=== PATIENT | male | born 1955 | race Caucasian/White ===

== ENCOUNTER 2021-09-11 14:09 | Emergency (ER) | payer OTHER ==
[~2021-09-11] VITALS: Ht 180.3 cm; Wt 79.4 kg
[~2021-09-11 14:09] MED LIST: ASPIRIN EC81 MG PO; AUGMENTIN 500-1 EACH PO; COREG12.5 MG PO; FUROSEMIDE20 MG PO
[2021-09-11] MEDS ORDERED: SODIUM CHLORIDE 0.9% 1000ML 1,000 ML IV STA (14:12)
[2021-09-11] MEDS ORDERED: ONDANSETRON HCL INJ 2MG/ML 2ML 2 MG/ML VIAL IV PRN (14:15)
[2021-09-11] MEDS ORDERED: DICYCLOMINE HCL 20 MG/2 ML VIAL IM ONE (14:45)
[2021-09-11 15:56] LABS: BASOPHILS % 0.2 % (0.0-1.0); EOSINOPHILS # (AUTO) 0.1 (0.0-0.4); EOSINOPHILS % 0.9 % (0.0-6.0); HEMATOCRIT 38.4 % (38.2-49.6); HEMOGLOBIN 12.6 g/dL (14.0-18.0); LYMPHOCYTES % 10.1 % (18.0-39.1); MEAN CORPUSCULAR HEMOGLOBIN 29.4 pg (28-32); MEAN CORPUSCULAR HGB CONC 32.8 g/dL (31-35); MEAN CORPUSCULAR VOLUME 89.5 fL (81-99); MONOCYTES # (AUTO) 0.5 (0.2-0.8); MONOCYTES % 4.7 % (4.4-11.3); NEUTROPHILS # (AUTO) 8.3 (2.1-6.9); NEUTROPHILS % 83.6 % (38.7-80.0); PLATELET COUNT 207 x10e3/uL (140-360); RED BLOOD COUNT 4.29 x10e6/uL (4.3-5.7); RED CELL DISTRIBUTION WIDTH 12.7 % (11.7-14.4)
[2021-09-11 16:03] LABS: CLARITY,URINE HAZY (CLEAR); COLOR,URINE YELLOW (YELLOW)
[2021-09-11 16:04] LABS: KETONES,URINE NEGATIVE (NEGATIVE); LEUKOCYTE ESTERASE ,URINE MODERATE (NEGATIVE); NITRITE,URINE NEGATIVE (NEGATIVE); PROTEIN,URINE DIPSTICK TRACE (NEGATIVE); URINE UROBILINOGEN 0.2 mg/dL (0.2 - 1)
[2021-09-11 16:05] LABS: BACTERIA,URINE FEW /HPF; EPITHELIAL CELLS,URINE FEW /LPF; WBC,URINE (MAN) >50 /HPF (0-5)
[2021-09-11 16:17] LABS: ALBUMIN 4.1 g/dL (3.5-5.0); ALBUMIN/GLOBULIN RATIO 1.1 (0.8-2.0); ANION GAP 14.6 mmol/L (8-16); CALCIUM 9.1 mg/dL (8.4-10.2); CREATININE, SERUM 1.39 mg/dL (0.72-1.25); POTASSIUM 3.6 mmol/L (3.5-5.1)
[2021-09-11] MEDS ORDERED: IOPAMIDOL 370 MG/ML 100 ML INFUS..BTL INJ ONE (17:15)
[2021-09-11] MEDS ORDERED: CEPHALEXIN500 MG PO (17:28)
[2021-09-11] MEDS ORDERED: PANTOPRAZOLE SO40 MG PO (17:55)
== END 2021-09-11 18:30 | disposition home or self-care (01) ==
LOC: ER 14:12
DX: R10.30 Lower abdominal pain, unspecified (principal); R11.2 Nausea with vomiting, unspecified; K29.70 Gastritis, unspecified, without bleeding; N39.0 Urinary tract infection, site not specified; I10 Essential (primary) hypertension; I50.9 Heart failure, unspecified; K57.90 Diverticulosis of intestine, part unspecified, without perforation or abscess without bleeding; I25.10 Atherosclerotic heart disease of native coronary artery without angina pectoris; K21.9 Gastro-esophageal reflux disease without esophagitis; K44.9 Diaphragmatic hernia without obstruction or gangrene
CPT/HCPCS: 36415; 71045; 74177; 80053; 81001; 83690; 83880; 84484; 85025; 93005; 99284; J0500; J2405; Q9967

== ENCOUNTER 2022-07-14 12:27 | Inpatient (IN) | payer OTHER ==
[~2022-07-14] VITALS: Ht 180.3 cm; Wt 80.4 kg
[~2022-07-14 12:27] MED LIST changes: +CEPHALEXIN500 MG PO; +PANTOPRAZOLE SO40 MG PO
[2022-07-14 13:23] LABS: BASOPHILS % 0.1 % (0.0-1.0); HEMATOCRIT 36.6 % (38.2-49.6); HEMOGLOBIN 12.4 g/dL (14.0-18.0); LYMPHOCYTES # (AUTO) 0.5 (1.0-3.2); LYMPHOCYTES % 2.8 % (18.0-39.1); MEAN CORPUSCULAR HGB CONC 33.9 g/dL (31-35); MEAN CORPUSCULAR VOLUME 88.4 fL (81-99); MONOCYTES # (AUTO) 1.8 (0.2-0.8); MONOCYTES % 10.1 % (4.4-11.3); NEUTROPHILS # (AUTO) 15.1 (2.1-6.9); NEUTROPHILS % 85.5 % (38.7-80.0); PLATELET COUNT 196 x10e3/uL (140-360); RED BLOOD COUNT 4.14 x10e6/uL (4.3-5.7)
[2022-07-14 13:42] LABS: ALBUMIN 3.5 g/dL (3.5-5.0); ANION GAP 15.8 mmol/L (8-16); CALCIUM 9.1 mg/dL (8.4-10.2); CREATININE, SERUM 2.43 mg/dL (0.72-1.25); POTASSIUM 3.8 mmol/L (3.5-5.1)
[2022-07-14] MEDS ORDERED: ACETAMINOPHEN 325 MG TAB PO ONE (14:00)
[2022-07-14] MEDS ORDERED: SODIUM CHLORIDE 0.9% 1000ML 500 ML IV ONE (14:00)
[2022-07-14 14:42] LABS: CLARITY,URINE TURBID (CLEAR); COLOR,URINE YELLOW (YELLOW); KETONES,URINE 2+ (NEGATIVE); LEUKOCYTE ESTERASE ,URINE LARGE (NEGATIVE); NITRITE,URINE NEGATIVE (NEGATIVE); PROTEIN,URINE DIPSTICK >=300 (NEGATIVE); URINE UROBILINOGEN 0.2 mg/dL (0.2 - 1)
[2022-07-14 14:45] LABS: BACTERIA,URINE MANY /HPF; EPITHELIAL CELLS,URINE FEW /LPF; RBC,URINE >50 /HPF (0-5); WBC,URINE (MAN) >50 /HPF (0-5)
[2022-07-14] MEDS ORDERED: Morphine 4mg INJECTION 4 MG/ML INJ IV PRN (16:00)
[2022-07-14] MEDS ORDERED: ONDANSETRON HCL INJ 2MG/ML 2ML 2 MG/ML VIAL IV PRN (16:00)
[2022-07-14 16:25] LABS: INR 1.21; PROTHROMBIN TIME 15.8 seconds (11.9-14.5)
[2022-07-14] MEDS ORDERED: IOPAMIDOL 370 MG/ML 100 ML INFUS..BTL INJ ONE (16:25)
[2022-07-14] MEDS ORDERED: SODIUM CHLORIDE 0.9% 250ML 250 ML ONE (16:25)
[2022-07-14] MEDS ORDERED: LIDOCAINE HCL 1% LOCAL INJ 20 ML VIAL ONE (16:25)
[2022-07-14] MEDS ORDERED: CEFTRIAXONE 1 GM VIAL ONE (16:29)
[2022-07-14] MEDS ORDERED: FENTANYL CITRATE/PF 100MCG/2 ML INJ ONE (16:29)
[2022-07-14] MEDS: SODIUM CHLORIDE 0.9% 1000ML 1,000 ML IV SCH (17:21)
[2022-07-14] MEDS ORDERED: MEROPENEM 1 GM in SODIUM CHLORIDE 0.9% 100 ML IV ONE (18:00)
[2022-07-14] MEDS ORDERED: ACETAMINOPHEN 325 MG TAB PO PRN (18:00)
[2022-07-14] MEDS ORDERED: ACETAMINOPHEN 325 MG TAB ONE (18:06)
[2022-07-14] MEDS ORDERED: MEROPENEM 1 GM VIAL ONE (18:07)
[2022-07-14] MEDS ORDERED: SODIUM CHLORIDE 0.9% 100 ML ONE (18:07)
[2022-07-14] MEDS ORDERED: IBUPROFEN 600 MG TAB PO STA (18:15)
[2022-07-14] MEDS ORDERED: IBUPROFEN 600 MG TAB ONE (18:18)
[2022-07-15] VITALS (10 sets, daily range): BP systolic 144–160; BP diastolic 71–84; PULSE 74–83; RESP 16–20; TEMP 97.2–99.5; O2SAT 95–98
[2022-07-15] MEDS: SODIUM CHLORIDE 0.9% 1000ML 1,000 ML IV SCH ×3 (00:01→20:52)
[2022-07-15] MEDS ORDERED: LOSARTAN POTASS25 MG PO (02:00)
[2022-07-15] MEDS: MEROPENEM 1 GM in SODIUM CHLORIDE 0.9% 100 ML IV SCH ×2 (02:47→09:00)
[2022-07-15 06:28] LABS: BASOPHILS % 0.4 % (0.0-1.0); EOSINOPHILS % 0.1 % (0.0-6.0); HEMATOCRIT 36.1 % (38.2-49.6); HEMOGLOBIN 11.5 g/dL (14.0-18.0); LYMPHOCYTES # (AUTO) 0.4 (1.0-3.2); LYMPHOCYTES % 4.5 % (18.0-39.1); MEAN CORPUSCULAR HEMOGLOBIN 29.5 pg (28-32); MEAN CORPUSCULAR HGB CONC 31.9 g/dL (31-35); MEAN CORPUSCULAR VOLUME 92.6 fL (81-99); MONOCYTES # (AUTO) 0.9 (0.2-0.8); MONOCYTES % 9.2 % (4.4-11.3); NEUTROPHILS # (AUTO) 8.3 (2.1-6.9); NEUTROPHILS % 85.2 % (38.7-80.0); PLATELET COUNT 153 x10e3/uL (140-360); RED CELL DISTRIBUTION WIDTH 13.2 % (11.7-14.4)
[2022-07-15 06:52] LABS: ANION GAP 14.5 mmol/L (8-16); CALCIUM 8.5 mg/dL (8.4-10.2); CREATININE, SERUM 1.88 mg/dL (0.72-1.25); POTASSIUM 4.5 mmol/L (3.5-5.1)
[2022-07-15] MEDS ORDERED: ACETAMINOPHEN/CODEINE 300MG - 30MG TAB PO PRN (09:30)
[2022-07-15] MEDS: SENNA-S TABLET PO SCH ×2 (11:27→17:51)
[2022-07-15] MEDS: CARVEDILOL 12.5 MG TAB PO SCH (17:51)
[2022-07-15] MEDS: TAMSULOSIN HCL 0.4 MG CAP PO SCH (20:52)
[2022-07-16] VITALS (7 sets, daily range): BP systolic 149–161; BP diastolic 79–99; PULSE 58–69; RESP 17–20; TEMP 97.6–99.4; O2SAT 95–98
[2022-07-16 06:23] LABS: EOSINOPHILS # (AUTO) 0.1 (0.0-0.4); EOSINOPHILS % 0.6 % (0.0-6.0); HEMATOCRIT 30.7 % (38.2-49.6); HEMOGLOBIN 10.4 g/dL (14.0-18.0); LYMPHOCYTES # (AUTO) 0.7 (1.0-3.2); LYMPHOCYTES % 8.8 % (18.0-39.1); MEAN CORPUSCULAR HEMOGLOBIN 29.9 pg (28-32); MEAN CORPUSCULAR HGB CONC 33.9 g/dL (31-35); MONOCYTES # (AUTO) 1.1 (0.2-0.8); MONOCYTES % 14.5 % (4.4-11.3); NEUTROPHILS # (AUTO) 5.9 (2.1-6.9); NEUTROPHILS % 75.6 % (38.7-80.0); PLATELET COUNT 151 x10e3/uL (140-360); RED BLOOD COUNT 3.48 x10e6/uL (4.3-5.7); RED CELL DISTRIBUTION WIDTH 13.2 % (11.7-14.4)
[2022-07-16 06:28] LABS: MEAN CORPUSCULAR VOLUME 88.2 fL (81-99)
[2022-07-16 06:55] LABS: ANION GAP 13.6 mmol/L (8-16); CALCIUM 8.2 mg/dL (8.4-10.2); CREATININE, SERUM 1.27 mg/dL (0.72-1.25); POTASSIUM 3.6 mmol/L (3.5-5.1)
[2022-07-16] MEDS: SENNA-S TABLET PO SCH ×2 (09:00→16:18)
[2022-07-16] MEDS: PANTOPRAZOLE SOD 40 MG TABEC PO SCH (09:04)
[2022-07-16] MEDS: CARVEDILOL 12.5 MG TAB PO SCH ×2 (09:04→16:17)
[2022-07-16] MEDS: SODIUM CHLORIDE 0.9% 1000ML 1,000 ML IV SCH ×3 (09:06→16:17)
[2022-07-16] MEDS: Vancomycin IV 1 GM in SODIUM CHLORIDE 0.9% 250ML 250 ML IV SCH (16:17)
[2022-07-16] MEDS ORDERED: SODIUM CHLORIDE 0.9% 250ML 250 ML ONE (19:43)
[2022-07-16] MEDS: TAMSULOSIN HCL 0.4 MG CAP PO SCH (20:09)
[2022-07-17] VITALS (7 sets, daily range): BP systolic 154–181; BP diastolic 81–96; PULSE 55–64; RESP 17–22; TEMP 98–99; O2SAT 95–100
[2022-07-17] MEDS: Vancomycin IV 1 GM in SODIUM CHLORIDE 0.9% 250ML 250 ML IV SCH (02:19)
[2022-07-17] MEDS: SODIUM CHLORIDE 0.9% 1000ML 1,000 ML IV SCH ×3 (02:19→16:14)
[2022-07-17] MEDS: SENNA-S TABLET PO SCH ×2 (09:00→16:15)
[2022-07-17] MEDS: PANTOPRAZOLE SOD 40 MG TABEC PO SCH (09:08)
[2022-07-17] MEDS: CARVEDILOL 12.5 MG TAB PO SCH ×2 (09:08→16:15)
[2022-07-17] MEDS: TAMSULOSIN HCL 0.4 MG CAP PO SCH (20:49)
[2022-07-18] VITALS (8 sets, daily range): BP systolic 157–179; BP diastolic 72–95; PULSE 58–70; RESP 18–19; TEMP 97.5–98.6; O2SAT 96–99
[2022-07-18] MEDS: SODIUM CHLORIDE 0.9% 1000ML 1,000 ML IV SCH ×2 (05:22→08:00)
[2022-07-18 06:27] LABS: BASOPHILS % 0.3 % (0.0-1.0); EOSINOPHILS # (AUTO) 0.2 (0.0-0.4); EOSINOPHILS % 2.9 % (0.0-6.0); HEMATOCRIT 31.8 % (38.2-49.6); HEMOGLOBIN 10.5 g/dL (14.0-18.0); LYMPHOCYTES # (AUTO) 1.1 (1.0-3.2); LYMPHOCYTES % 16.7 % (18.0-39.1); MEAN CORPUSCULAR HEMOGLOBIN 29.7 pg (28-32); MEAN CORPUSCULAR VOLUME 90.1 fL (81-99); MONOCYTES # (AUTO) 0.8 (0.2-0.8); MONOCYTES % 12.6 % (4.4-11.3); NEUTROPHILS # (AUTO) 4.3 (2.1-6.9); NEUTROPHILS % 66.3 % (38.7-80.0); PLATELET COUNT 194 x10e3/uL (140-360); RED BLOOD COUNT 3.53 x10e6/uL (4.3-5.7); RED CELL DISTRIBUTION WIDTH 13.2 % (11.7-14.4)
[2022-07-18 07:07] LABS: ANION GAP 15.3 mmol/L (8-16); CALCIUM 8.2 mg/dL (8.4-10.2); CREATININE, SERUM 1.03 mg/dL (0.72-1.25); POTASSIUM 3.3 mmol/L (3.5-5.1)
[2022-07-18] MEDS: SENNA-S TABLET PO SCH ×2 (09:00→17:00)
[2022-07-18] MEDS ORDERED: ONDANSETRON HCL 4 MG ORAL DISINTEGRATING TAB PO PRN (09:30)
[2022-07-18 09:39] LABS: LYMPHOCYTES % (MANUAL) 26 % (19-48); MONOCYTES % (MANUAL) 6 % (3.4-9.0); NEUTROPHILS % (MANUAL) 68 % (40-74); PLATELET ESTIMATE ADEQUATE; PLATELET MORPHOLOGY COMMENT NORMAL; RBC MORPHOLOGY COMMENT NORMAL
[2022-07-18] MEDS: CARVEDILOL 12.5 MG TAB PO SCH ×2 (09:48→17:40)
[2022-07-18] MEDS: PANTOPRAZOLE SOD 40 MG TABEC PO SCH (09:48)
[2022-07-18] MEDS: HYDRALAZINE HCL 25 MG TAB PO PRN (17:41)
[2022-07-18] MEDS: TAMSULOSIN HCL 0.4 MG CAP PO SCH (21:46)
[2022-07-19] VITALS (8 sets, daily range): BP systolic 145–179; BP diastolic 74–99; PULSE 58–70; RESP 16–20; TEMP 97–98.3; O2SAT 95–97
[2022-07-19] MEDS: PANTOPRAZOLE SOD 40 MG TABEC PO SCH (09:26)
[2022-07-19] MEDS: CARVEDILOL 12.5 MG TAB PO SCH ×2 (09:26→17:37)
[2022-07-19] MEDS: SENNA-S TABLET PO SCH ×2 (09:26→17:37)
[2022-07-19] MEDS ORDERED: POTASSIUM CHLORIDE 20 MEQ TAB CR PO ONE (09:30)
[2022-07-19] MEDS: TAMSULOSIN HCL 0.4 MG CAP PO SCH (21:32)
[2022-07-20] VITALS (8 sets, daily range): BP systolic 156–179; BP diastolic 79–92; PULSE 60–80; RESP 18–21; TEMP 98.1–98.9; O2SAT 94–99
[2022-07-20] MEDS: HYDRALAZINE HCL 25 MG TAB PO PRN (00:45)
[2022-07-20 05:33] LABS: BASOPHILS % 0.5 % (0.0-1.0); EOSINOPHILS # (AUTO) 0.3 (0.0-0.4); EOSINOPHILS % 3.1 % (0.0-6.0); HEMATOCRIT 34.1 % (38.2-49.6); HEMOGLOBIN 11.5 g/dL (14.0-18.0); LYMPHOCYTES # (AUTO) 1.4 (1.0-3.2); LYMPHOCYTES % 16.5 % (18.0-39.1); MEAN CORPUSCULAR HEMOGLOBIN 29.8 pg (28-32); MEAN CORPUSCULAR HGB CONC 33.7 g/dL (31-35); MEAN CORPUSCULAR VOLUME 88.3 fL (81-99); MONOCYTES # (AUTO) 0.9 (0.2-0.8); MONOCYTES % 9.8 % (4.4-11.3); NEUTROPHILS # (AUTO) 5.7 (2.1-6.9); NEUTROPHILS % 65.7 % (38.7-80.0); PLATELET COUNT 274 x10e3/uL (140-360); RED BLOOD COUNT 3.86 x10e6/uL (4.3-5.7); RED CELL DISTRIBUTION WIDTH 13.2 % (11.7-14.4)
[2022-07-20 06:10] LABS: ALBUMIN 2.9 g/dL (3.5-5.0); ALBUMIN/GLOBULIN RATIO 0.9 (0.8-2.0); ANION GAP 11.9 mmol/L (8-16); CALCIUM 8.9 mg/dL (8.4-10.2); CREATININE, SERUM 1.1 mg/dL (0.72-1.25); POTASSIUM 3.9 mmol/L (3.5-5.1)
[2022-07-20] MEDS: PANTOPRAZOLE SOD 40 MG TABEC PO SCH (07:30)
[2022-07-20] MEDS: SENNA-S TABLET PO SCH ×2 (08:14→17:29)
[2022-07-20] MEDS: CARVEDILOL 12.5 MG TAB PO SCH ×2 (08:14→17:29)
[2022-07-20] MEDS ORDERED: IOPAMIDOL 610MG/1ML 300 MG/ML VIAL IV ONE ×2 (08:29→09:17)
[2022-07-20] MEDS ORDERED: HEPARIN SOD/SOD CHLORIDE 1,000 ML ONE (09:26)
[2022-07-20] MEDS ORDERED: ACETAMINOPHEN/CODEINE 300MG - 30MG TAB PO PRN (11:15)
[2022-07-20] MEDS ORDERED: PHENAZOPYRIDINE HCL 100 MG TAB PO PRN (11:15)
[2022-07-20] MEDS ORDERED: FENTANYL CITRATE/PF 100MCG/2 ML INJ ONE (11:35)
[2022-07-20] MEDS ORDERED: POVIDONE IODINE 0.05% 0.05 % ML PO ONE (13:33)
[2022-07-20] MEDS ORDERED: PROPOFOL IV EMULSION 10 MG/ML 20 ML VIAL ONE (13:33)
[2022-07-20] MEDS ORDERED: EPHEDRINE SULFATE INJ 50 MG/ML VIAL ONE (13:33)
[2022-07-20] MEDS ORDERED: ONDANSETRON HCL INJ 2MG/ML 2ML 2 MG/ML VIAL ONE (13:33)
[2022-07-20] MEDS ORDERED: ETOMIDATE 2 MG/ML 10 ML INJ IV ONE (13:33)
[2022-07-20] MEDS ORDERED: SEVOFLURANE INHAL SOLN 250 ML PEN BTL ONE (13:33)
[2022-07-20] MEDS ORDERED: LIDOCAINE HCL 2% LOCAL INJ 5 ML SDV VIAL INJ ONE (13:33)
[2022-07-20] MEDS: TAMSULOSIN HCL 0.4 MG CAP PO SCH (21:06)
[2022-07-21] VITALS (9 sets, daily range): BP systolic 139–175; BP diastolic 73–86; PULSE 69–77; RESP 17–21; TEMP 97.9–98.5; O2SAT 96–99
[2022-07-21 05:53] LABS: BASOPHILS % 0.4 % (0.0-1.0); EOSINOPHILS # (AUTO) 0.2 (0.0-0.4); HEMATOCRIT 32.9 % (38.2-49.6); HEMOGLOBIN 10.5 g/dL (14.0-18.0); LYMPHOCYTES # (AUTO) 1.4 (1.0-3.2); LYMPHOCYTES % 13.4 % (18.0-39.1); MEAN CORPUSCULAR HEMOGLOBIN 29.4 pg (28-32); MEAN CORPUSCULAR HGB CONC 31.9 g/dL (31-35); MEAN CORPUSCULAR VOLUME 92.2 fL (81-99); MONOCYTES # (AUTO) 1.1 (0.2-0.8); MONOCYTES % 10.3 % (4.4-11.3); NEUTROPHILS # (AUTO) 7.1 (2.1-6.9); NEUTROPHILS % 69.7 % (38.7-80.0); PLATELET COUNT 300 x10e3/uL (140-360); RED BLOOD COUNT 3.57 x10e6/uL (4.3-5.7); RED CELL DISTRIBUTION WIDTH 13.2 % (11.7-14.4)
[2022-07-21 06:31] LABS: CALCIUM 8.6 mg/dL (8.4-10.2); CREATININE, SERUM 1.11 mg/dL (0.72-1.25)
[2022-07-21] MEDS: PANTOPRAZOLE SOD 40 MG TABEC PO SCH (07:35)
[2022-07-21] MEDS: CARVEDILOL 12.5 MG TAB PO SCH ×2 (17:00→18:14)
[2022-07-21] MEDS: SENNA-S TABLET PO SCH ×2 (17:00→18:13)
[2022-07-21] MEDS: TAMSULOSIN HCL 0.4 MG CAP PO SCH (21:20)
[2022-07-22] VITALS (8 sets, daily range): BP systolic 155–175; BP diastolic 77–87; PULSE 58–72; RESP 18–20; TEMP 97.9–98.5; O2SAT 97–98
[2022-07-22] MEDS: SENNA-S TABLET PO SCH ×2 (08:19→15:51)
[2022-07-22] MEDS: CARVEDILOL 12.5 MG TAB PO SCH ×2 (08:20→15:51)
[2022-07-22] MEDS: PANTOPRAZOLE SOD 40 MG TABEC PO SCH (08:20)
[2022-07-22] MEDS: HYDRALAZINE HCL 25 MG TAB PO PRN ×3 (09:49→23:17)
[2022-07-22] MEDS ORDERED: ceftin PO (12:16)
[2022-07-22] MEDS ORDERED: FLOMAX0.4 MG PO (12:16)
[2022-07-22] MEDS ORDERED: PYRIDIUM100 MG PO (12:17)
[2022-07-22] MEDS: TAMSULOSIN HCL 0.4 MG CAP PO SCH (21:09)
[2022-07-23] VITALS: BP 188/79; PULSE 59; RESP 18; TEMP 97.9; O2SAT 99
[2022-07-23 04:00] VITALS: BP 145/70; PULSE 62; RESP 18; TEMP 98.3; O2SAT 99
[2022-07-23 08:13] VITALS: BP 166/75; PULSE 62; RESP 16; TEMP 98.1; O2SAT 99
[2022-07-23 09:15] VITALS: BP 166/75; PULSE 62; RESP 16; TEMP 98.1; O2SAT 99
[2022-07-23] MEDS: SENNA-S TABLET PO SCH ×2 (09:26→17:47)
[2022-07-23] MEDS: CARVEDILOL 12.5 MG TAB PO SCH ×2 (09:26→17:47)
[2022-07-23] MEDS: PANTOPRAZOLE SOD 40 MG TABEC PO SCH (09:26)
[2022-07-23] MEDS ORDERED: LOSARTAN POTASSIUM 25 MG TAB PO SCH (11:30)
[2022-07-23 12:19] VITALS: BP 170/86; PULSE 67; RESP 17; TEMP 98.2; O2SAT 96
[2022-07-23 15:47] VITALS: BP 183/87; PULSE 64; RESP 18; TEMP 98.1; O2SAT 97
[2022-07-23] MEDS: HYDRALAZINE HCL 25 MG TAB PO PRN (17:47)
[2022-07-24] MEDS ORDERED: ASPIRIN 81 MG ENTERIC COATED PO SCH (09:00)
== END 2022-07-23 19:38 | disposition home health service (06) | DRG 854 ==
LOC: ER 12:39 → ERHOLD 16:00 → MED/SURG3 23:46
PROVIDERS: ADMIT Internal Medicine; ATTEND Internal Medicine
PROC: 0T9130Z Drainage of Left Kidney with Drainage Device, Percutaneous Approach (ICD-10-PCS; principal; 2022-07-15)
PROC: 3E03329 Introduction of Other Anti-infective into Peripheral Vein, Percutaneous Approach (ICD-10-PCS; 2022-07-15)
PROC: 0T778DZ Dilation of Left Ureter with Intraluminal Device, Via Natural or Artificial Opening Endoscopic (ICD-10-PCS; 2022-07-20)
PROC: 0TC78ZZ Extirpation of Matter from Left Ureter, Via Natural or Artificial Opening Endoscopic (ICD-10-PCS; 2022-07-20)
PROC: 0TP5X0Z Removal of Drainage Device from Kidney, External Approach (ICD-10-PCS; 2022-07-20)
PROC: BT141ZZ Fluoroscopy of Kidneys, Ureters and Bladder using Low Osmolar Contrast (ICD-10-PCS; 2022-07-20)
PROC: 02HV33Z Insertion of Infusion Device into Superior Vena Cava, Percutaneous Approach (ICD-10-PCS; 2022-07-22)
DX: A41.01 Sepsis due to Methicillin susceptible Staphylococcus aureus (principal); D62 Acute posthemorrhagic anemia; N13.6 Pyonephrosis; Z16.19 Resistance to other specified beta lactam antibiotics; N17.9 Acute kidney failure, unspecified; I42.8 Other cardiomyopathies; I13.0 Hypertensive heart and chronic kidney disease with heart failure and stage 1 through stage 4 chronic kidney disease, or unspecified chronic kidney disease; R65.20 Severe sepsis without septic shock; I25.10 Atherosclerotic heart disease of native coronary artery without angina pectoris; N40.1 Benign prostatic hyperplasia with lower urinary tract symptoms; R33.8 Other retention of urine; I50.9 Heart failure, unspecified; K21.9 Gastro-esophageal reflux disease without esophagitis; K57.90 Diverticulosis of intestine, part unspecified, without perforation or abscess without bleeding; R31.0 Gross hematuria; N32.81 Overactive bladder; N32.3 Diverticulum of bladder; N18.9 Chronic kidney disease, unspecified; I49.3 Ventricular premature depolarization; Z79.82 Long term (current) use of aspirin; Z79.899 Other long term (current) drug therapy; Z20.822 Contact with and (suspected) exposure to COVID-19
CPT/HCPCS: 36415; 36569; 50432; 71045; 74176; 74420; 74470; 76942; 80048; 80053; 81001; 82948; 83605; 83880; 83970; 84484; 84550; 85025; 85610; 87040; 87071; 87086; 87186; 87205; 88300; 93005; 93306; 96361; 99285; C1729; C1758; C1769; C2617; J0690; J0692; J0696; J2001; J2185; J2270; J2405; J7030; J7050; Q0162; Q9967

== ENCOUNTER 2023-08-06 09:07 | Inpatient (IN) | payer OTHER ==
[~2023-08-06] VITALS: Ht 332.7 cm; Wt 80.3 kg
[~2023-08-06 09:07] MED LIST changes: +B COMPLEX1 EACH PO; +CIPRO500 MG PO; +FIBER TABS625 MG PO; +FISH OIL 1,0001 EAC7 PO; +FLOMAX0.4 MG PO; +LOSARTAN POTASS25 MG PO; +NAC600 MG PO; +PYRIDIUM100 MG PO; +VITAMIN C500 MG PO; +ceftin PO
[2023-08-06] MEDS ORDERED: SODIUM CHLORIDE FLUSH 10 ML SYR IV PRN (09:45)
[2023-08-06] MEDS: ENOXAPARIN INJ 80 MG/0.8 ML SYR SC STA (09:56)
[2023-08-06] MEDS: ASPIRIN 81 MG CHEW TAB PO ONE ×2 (09:56→10:59)
[2023-08-06] MEDS: DILTIAZEM HCL 5 MG/ML 5 ML VIAL IV ONE (09:59)
[2023-08-06 10:23] LABS: BASOPHILS % 0.2 % (0.0-1.0); EOSINOPHILS # (AUTO) 0.1 (0.0-0.4); HEMATOCRIT 38.4 % (38.2-49.6); LYMPHOCYTES % 10.8 % (18.0-39.1); MEAN CORPUSCULAR HEMOGLOBIN 30.4 pg (28-32); MEAN CORPUSCULAR HGB CONC 33.9 g/dL (31-35); MEAN CORPUSCULAR VOLUME 89.7 fL (81-99); MONOCYTES # (AUTO) 0.8 (0.2-0.8); MONOCYTES % 9.1 % (4.4-11.3); NEUTROPHILS # (AUTO) 7.1 (2.1-6.9); NEUTROPHILS % 78.7 % (38.7-80.0); PLATELET COUNT 190 x10e3/uL (140-360); RED BLOOD COUNT 4.28 x10e6/uL (4.3-5.7); RED CELL DISTRIBUTION WIDTH 13.2 % (11.7-14.4); WHITE BLOOD COUNT 9.08 x10e3/uL (4.8-10.8)
[2023-08-06 10:25] LABS: INR 1.19; PROTHROMBIN TIME 15.9 seconds (11.9-14.5)
[2023-08-06 10:26] LABS: PARTIAL THROMBOPLASTIN TIME 35.2 seconds (23.8-35.5)
[2023-08-06 10:39] LABS: ALBUMIN 3.8 g/dL (3.5-5.0); ALBUMIN/GLOBULIN RATIO 1.2 (0.8-2.0); ANION GAP 17.4 mmol/L (8-16); BILIRUBIN,TOTAL 1.2 mg/dL (0.2-1.2); CREATININE, SERUM 1.43 mg/dL (0.72-1.25); POTASSIUM 4.4 mmol/L (3.5-5.1); TOTAL PROTEIN 6.9 g/dL (6.5-8.1)
[2023-08-06 10:48] LABS: TROPONIN I 0.029 ng/mL (0-0.300)
[2023-08-06] MEDS: DILTIAZEM HCL 30 MG TAB PO SCH (10:58)
[2023-08-06] MEDS ORDERED: SODIUM CHLORIDE FLUSH 10 ML SYR INJ PRN (11:00)
[2023-08-06] MEDS ORDERED: ONDANSETRON HCL INJ 2MG/ML 2ML 2 MG/ML VIAL IV PRN (11:00)
[2023-08-06 12:34] VITALS: PULSE 73; RESP 16
[2023-08-06 13:45] VITALS: BP 154/94; PULSE 81; RESP 17; TEMP 97.9; O2SAT 96; O2SAT 97
[2023-08-06 16:08] LABS: TROPONIN I 0.02 ng/mL (0-0.300)
[2023-08-06 16:30] VITALS: BP 160/108; PULSE 79; RESP 18; TEMP 97.9; O2SAT 95
[2023-08-06 19:48] VITALS: BP 160/108; PULSE 79; RESP 18; TEMP 97.9; O2SAT 95
[2023-08-06 20:57] VITALS: BP 152/107; PULSE 74; RESP 20; TEMP 97.4; O2SAT 97
[2023-08-06] MEDS: AMIODARONE HCL 200 MG TAB PO SCH (21:28)
[2023-08-06] MEDS: HYDROCODONE/APAP 10MG-325MG TAB PO PRN (22:48)
[2023-08-07] VITALS (8 sets, daily range): BP systolic 134–174; BP diastolic 66–117; PULSE 53–92; RESP 16–21; TEMP 97.8–98.5; O2SAT 96–100
[2023-08-07 06:55] LABS: BASOPHILS % 0.2 % (0.0-1.0); EOSINOPHILS # (AUTO) 0.3 (0.0-0.4); EOSINOPHILS % 4.3 % (0.0-6.0); HEMOGLOBIN 12.4 g/dL (14.0-18.0); LYMPHOCYTES # (AUTO) 1.7 (1.0-3.2); LYMPHOCYTES % 28.7 % (18.0-39.1); MEAN CORPUSCULAR HEMOGLOBIN 30.5 pg (28-32); MEAN CORPUSCULAR HGB CONC 34.4 g/dL (31-35); MEAN CORPUSCULAR VOLUME 88.5 fL (81-99); MONOCYTES # (AUTO) 0.9 (0.2-0.8); MONOCYTES % 14.8 % (4.4-11.3); NEUTROPHILS % 51.5 % (38.7-80.0); PLATELET COUNT 158 x10e3/uL (140-360); RED BLOOD COUNT 4.07 x10e6/uL (4.3-5.7); RED CELL DISTRIBUTION WIDTH 13.5 % (11.7-14.4); WHITE BLOOD COUNT 5.81 x10e3/uL (4.8-10.8)
[2023-08-07 07:42] LABS: ALBUMIN 3.4 g/dL (3.5-5.0); ALBUMIN/GLOBULIN RATIO 1.3 (0.8-2.0); ANION GAP 13.7 mmol/L (8-16); BILIRUBIN,TOTAL 1.4 mg/dL (0.2-1.2); CALCIUM 8.5 mg/dL (8.4-10.2); CREATININE, SERUM 1.22 mg/dL (0.72-1.25); POTASSIUM 3.7 mmol/L (3.5-5.1); TOTAL PROTEIN 6.1 g/dL (6.5-8.1)
[2023-08-07 08:02] LABS: CHOL/HDL RATIO 3.3 (3.9-4.7)
[2023-08-07] MEDS: FUROSEMIDE 20 MG TAB PO SCH (08:16)
[2023-08-07] MEDS: APIXABAN 5 MG TABLET PO SCH (08:17)
[2023-08-07] MEDS: CARVEDILOL 12.5 MG TAB PO SCH (08:18)
[2023-08-07 08:23] LABS: THYROID STIMULATING HORMONE 2.631 uIU/mL (0.350-4.940)
[2023-08-07] MEDS: LOSARTAN POTASSIUM 25 MG TAB PO SCH ×2 (08:23→16:15)
[2023-08-07] MEDS ORDERED: ASPIRIN 81 MG ENTERIC COATED PO SCH (09:00)
[2023-08-07] MEDS: AMLODIPINE BESYLATE 5 MG TAB PO SCH (13:04)
[2023-08-08] VITALS (7 sets, daily range): BP systolic 121–149; BP diastolic 85–101; PULSE 55–90; RESP 16–18; TEMP 97.5–98.1; O2SAT 94–100
[2023-08-08 05:13] LABS: BASOPHILS % 0.2 % (0.0-1.0); EOSINOPHILS # (AUTO) 0.3 (0.0-0.4); EOSINOPHILS % 5.5 % (0.0-6.0); HEMATOCRIT 38.5 % (38.2-49.6); HEMOGLOBIN 12.5 g/dL (14.0-18.0); LYMPHOCYTES # (AUTO) 1.7 (1.0-3.2); LYMPHOCYTES % 27.9 % (18.0-39.1); MEAN CORPUSCULAR HEMOGLOBIN 29.4 pg (28-32); MEAN CORPUSCULAR HGB CONC 32.5 g/dL (31-35); MEAN CORPUSCULAR VOLUME 90.6 fL (81-99); MONOCYTES # (AUTO) 0.9 (0.2-0.8); MONOCYTES % 14.4 % (4.4-11.3); NEUTROPHILS # (AUTO) 3.2 (2.1-6.9); NEUTROPHILS % 51.7 % (38.7-80.0); PLATELET COUNT 175 x10e3/uL (140-360); RED BLOOD COUNT 4.25 x10e6/uL (4.3-5.7); WHITE BLOOD COUNT 6.19 x10e3/uL (4.8-10.8)
[2023-08-08 05:46] LABS: ANION GAP 14.7 mmol/L (8-16); CALCIUM 8.7 mg/dL (8.4-10.2); CREATININE, SERUM 1.39 mg/dL (0.72-1.25); POTASSIUM 3.7 mmol/L (3.5-5.1)
[2023-08-08] MEDS ORDERED: Azithromycin IV 500 MG 10 ML VIAL ONE (10:47)
[2023-08-08] MEDS ORDERED: ONDANSETRON HCL 4 MG ORAL DISINTEGRATING TAB PO PRN (13:15)
[2023-08-09] VITALS (9 sets, daily range): BP systolic 105–141; BP diastolic 61–106; PULSE 56–84; RESP 16–18; TEMP 97.5–98.2; O2SAT 96–100
[2023-08-09] MEDS ORDERED: CARVEDILOL 12.5 MG TAB PO ONE (09:45)
[2023-08-09] MEDS: CARVEDILOL 12.5 MG TAB PO SCH (09:46)
[2023-08-10 00:18] VITALS: BP 118/87; PULSE 71; RESP 16; TEMP 97.7; O2SAT 99
[2023-08-10 04:45] VITALS: BP 131/93; PULSE 70; RESP 18; TEMP 97.7; O2SAT 99
[2023-08-10 08:15] VITALS: BP 142/105; PULSE 72; RESP 18; TEMP 98.1; O2SAT 100
[2023-08-10 09:45] VITALS: BP 143/103; PULSE 72; RESP 18; TEMP 98.1; O2SAT 100
[2023-08-10] MEDS ORDERED: AMIODARONE HCL 200 MG TAB PO SCH (10:00)
[2023-08-10 11:38] VITALS: BP 99/75; PULSE 63; RESP 17; TEMP 97.8; O2SAT 100
[2023-08-10 17:33] VITALS: BP 131/91; PULSE 61; RESP 16; TEMP 98; O2SAT 100
[2023-08-11 00:46] VITALS: BP 123/83; PULSE 65; RESP 18; TEMP 98.2; O2SAT 96
[2023-08-11 04:02] VITALS: BP 127/85; PULSE 67; RESP 18; TEMP 97.7; O2SAT 99
[2023-08-11 08:00] VITALS: BP 127/85; PULSE 67; RESP 18; TEMP 97.7; O2SAT 99
[2023-08-11] MEDS: AZITHROMYCIN 250 MG TAB PO SCH (08:11)
[2023-08-11] MEDS: AMIODARONE HCL 200 MG TAB PO SCH (08:12)
[2023-08-11 08:21] VITALS: BP 141/94; PULSE 67; RESP 17; TEMP 98; O2SAT 99
== END 2023-08-11 11:35 | disposition home or self-care (01) | DRG 193 ==
LOC: ER 09:39 → ERHOLD 10:54 → MED/SURG3 13:06 → OBSVTOIN 08-07 09:30
PROVIDERS: ADMIT Internal Medicine; ATTEND Internal Medicine
DX: J18.9 Pneumonia, unspecified organism (principal); I50.23 Acute on chronic systolic (congestive) heart failure; I42.9 Cardiomyopathy, unspecified; I13.0 Hypertensive heart and chronic kidney disease with heart failure and stage 1 through stage 4 chronic kidney disease, or unspecified chronic kidney disease; I25.10 Atherosclerotic heart disease of native coronary artery without angina pectoris; I48.91 Unspecified atrial fibrillation; N18.32 Chronic kidney disease, stage 3b; D63.1 Anemia in chronic kidney disease; R59.1 Generalized enlarged lymph nodes; Z87.442 Personal history of urinary calculi; Z79.82 Long term (current) use of aspirin; Z90.5 Acquired absence of kidney
CPT/HCPCS: 36415; 71045; 71046; 71250; 80048; 80053; 80061; 82550; 83880; 84443; 84484; 85025; 85610; 85730; 93005; 93306; 99284; G0378; J0696; J1650; J7050; U0002

== ENCOUNTER 2023-12-15 15:56 | Inpatient (IN) | payer OTHER ==
[~2023-12-15] VITALS: Ht 188 cm; Wt 80.3 kg
[2023-12-15] VITALS (10 sets, daily range): BP systolic 114–153; BP diastolic 99–118; PULSE 83–146; RESP 0–45; TEMP 97.9–98; O2SAT 83–97
[2023-12-15 17:33] LABS: EOSINOPHILS # (AUTO) 0.1 (0.0-0.4); EOSINOPHILS % 0.7 % (0.0-6.0); HEMATOCRIT 40.7 % (38.2-49.6); HEMOGLOBIN 12.5 g/dL (14.0-18.0); LYMPHOCYTES # (AUTO) 1.3 (1.0-3.2); LYMPHOCYTES % 16.3 % (18.0-39.1); MEAN CORPUSCULAR HEMOGLOBIN 31.6 pg (28-32); MEAN CORPUSCULAR HGB CONC 30.7 g/dL (31-35); MONOCYTES % 11.8 % (4.4-11.3); NEUTROPHILS # (AUTO) 5.8 (2.1-6.9); NEUTROPHILS % 70.7 % (38.7-80.0); PLATELET COUNT 250 x10e3/uL (140-360); RED BLOOD COUNT 3.95 x10e6/uL (4.3-5.7); RED CELL DISTRIBUTION WIDTH 17.1 % (11.7-14.4); WHITE BLOOD COUNT 8.14 x10e3/uL (4.8-10.8)
[2023-12-15 17:39] LABS: INR 1.43; PROTHROMBIN TIME 18.1 seconds (11.9-14.5)
[2023-12-15 17:40] LABS: PARTIAL THROMBOPLASTIN TIME 39.5 seconds (23.8-35.5)
[2023-12-15] MEDS: AMIODARONE HCL 150 MG/100 ML BAG IV ONE (17:42)
[2023-12-15 17:49] LABS: ALBUMIN 3.7 g/dL (3.5-5.0); ALBUMIN/GLOBULIN RATIO 1.2 (0.8-2.0); ANION GAP 16.4 mmol/L (8-16); BILIRUBIN,TOTAL 1.5 mg/dL (0.2-1.2); CALCIUM 8.9 mg/dL (8.4-10.2); CREATININE, SERUM 2.03 mg/dL (0.72-1.25); POTASSIUM 4.4 mmol/L (3.5-5.1); TOTAL PROTEIN 6.9 g/dL (6.5-8.1)
[2023-12-15 17:58] LABS: TROPONIN I 0.031 ng/mL (0-0.300)
[2023-12-15] MEDS: AMIODARONE 900MG 500 ML IV SCH (18:00)
[2023-12-15] MEDS: APIXABAN 5 MG TABLET PO SCH (18:25)
[2023-12-15 18:48] LABS: INFLUENZAE A&B ANTIGEN (RAPID) NEGATIVE (NEGATIVE); RESPIRATORY SYNC. VIRUS NEGATIVE (NEGATIVE)
[2023-12-15] MEDS ORDERED: ONDANSETRON HCL INJ 2MG/ML 2ML 2 MG/ML VIAL IV PRN (19:15)
[2023-12-15] MEDS: FUROSEMIDE INJ 10 MG/ML 4 ML VIAL IV ONE (19:42)
[2023-12-15] MEDS ORDERED: ACETAMINOPHEN 325 MG TAB PO PRN (20:30)
[2023-12-15] MEDS ORDERED: POLYETHYLENE GLYCOL 3350 17 GM PACK PO PRN (20:30)
[2023-12-15] MEDS ORDERED: IPRATROPIUM BROMIDE 0.02% 2.5 ML NEB NEB PRN (22:15)
[2023-12-15] MEDS ORDERED: HYDRALAZINE HCL 20 MG/ML VIAL IV PRN (22:15)
[2023-12-15] MEDS ORDERED: MAGNESIUM/ALUMINUM/SIMETHICONE 30 ML UDC PO PRN (22:15)
[2023-12-15] MEDS ORDERED: GUAIFENESIN/DEXTROMETHORPHAN LIQD 5 ML UDC PO PRN (22:15)
[2023-12-15] MEDS: MELATONIN 3 MG TAB PO PRN (23:02)
[2023-12-16] VITALS (46 sets, daily range): BP systolic 111–172; BP diastolic 75–136; PULSE 36–134; RESP 5–40; TEMP 98–98.1; O2SAT 85–100
[2023-12-16] MEDS: AMIODARONE 900MG 500 ML IV SCH (00:15)
[2023-12-16 07:11] LABS: BASOPHILS % 0.1 % (0.0-1.0); EOSINOPHILS % 0.5 % (0.0-6.0); HEMATOCRIT 40.6 % (38.2-49.6); HEMOGLOBIN 12.8 g/dL (14.0-18.0); LYMPHOCYTES # (AUTO) 0.9 (1.0-3.2); LYMPHOCYTES % 10.8 % (18.0-39.1); MEAN CORPUSCULAR HEMOGLOBIN 31.9 pg (28-32); MEAN CORPUSCULAR HGB CONC 31.5 g/dL (31-35); MEAN CORPUSCULAR VOLUME 101.2 fL (81-99); MONOCYTES % 11.6 % (4.4-11.3); NEUTROPHILS # (AUTO) 6.3 (2.1-6.9); NEUTROPHILS % 76.6 % (38.7-80.0); PLATELET COUNT 215 x10e3/uL (140-360); RED BLOOD COUNT 4.01 x10e6/uL (4.3-5.7); RED CELL DISTRIBUTION WIDTH 16.6 % (11.7-14.4); WHITE BLOOD COUNT 8.18 x10e3/uL (4.8-10.8)
[2023-12-16 07:29] LABS: ALBUMIN 3.5 g/dL (3.5-5.0); ALBUMIN/GLOBULIN RATIO 1.2 (0.8-2.0); BILIRUBIN,TOTAL 1.9 mg/dL (0.2-1.2); CALCIUM 9.1 mg/dL (8.4-10.2); CREATININE, SERUM 1.87 mg/dL (0.72-1.25); TOTAL PROTEIN 6.5 g/dL (6.5-8.1)
[2023-12-16 07:49] LABS: TROPONIN I 0.03 ng/mL (0-0.300)
[2023-12-16] MEDS: PANTOPRAZOLE SOD 40 MG TABEC PO SCH (09:34)
[2023-12-16] MEDS: DOCUSATE SODIUM 100 MG CAP PO SCH (09:34)
[2023-12-16] MEDS: MULTIVITAMINS/MINERALS TAB PO SCH (09:34)
[2023-12-16] MEDS: ASCORBIC ACID 500 MG TAB PO SCH (09:34)
[2023-12-16] MEDS: CARVEDILOL 12.5 MG TAB PO SCH (09:35)
[2023-12-16] MEDS: CALCIUM POLYCARBOPHIL 625 MG TAB PO SCH (10:45)
[2023-12-16] MEDS: METOPROLOL TARTRATE INJ 1 MG/ML VIAL IV PRN (10:46)
[2023-12-16 12:18] LABS: CHOL/HDL RATIO 3.3 (3.9-4.7)
[2023-12-16 14:02] LABS: TROPONIN I 0.027 ng/mL (0-0.300)
[2023-12-16] MEDS: TAMSULOSIN HCL 0.4 MG CAP PO SCH (17:47)
[2023-12-16] MEDS: AMIODARONE HCL 200 MG TAB PO SCH (18:03)
[2023-12-17] VITALS (39 sets, daily range): BP systolic 113–143; BP diastolic 84–111; PULSE 46–137; RESP 9–31; TEMP 97.5–98; O2SAT 70–100
[2023-12-17 06:39] LABS: BASOPHILS % 0.1 % (0.0-1.0); EOSINOPHILS # (AUTO) 0.1 (0.0-0.4); EOSINOPHILS % 1.6 % (0.0-6.0); HEMATOCRIT 37.9 % (38.2-49.6); HEMOGLOBIN 11.9 g/dL (14.0-18.0); LYMPHOCYTES # (AUTO) 0.8 (1.0-3.2); LYMPHOCYTES % 9.6 % (18.0-39.1); MEAN CORPUSCULAR HEMOGLOBIN 31.2 pg (28-32); MEAN CORPUSCULAR HGB CONC 31.4 g/dL (31-35); MEAN CORPUSCULAR VOLUME 99.5 fL (81-99); MONOCYTES # (AUTO) 0.9 (0.2-0.8); MONOCYTES % 11.5 % (4.4-11.3); NEUTROPHILS # (AUTO) 6.3 (2.1-6.9); PLATELET COUNT 189 x10e3/uL (140-360); RED BLOOD COUNT 3.81 x10e6/uL (4.3-5.7); RED CELL DISTRIBUTION WIDTH 16.4 % (11.7-14.4)
[2023-12-17 07:18] LABS: ALBUMIN/GLOBULIN RATIO 1.2 (0.8-2.0); BILIRUBIN,TOTAL 1.6 mg/dL (0.2-1.2); CALCIUM 8.6 mg/dL (8.4-10.2); CREATININE, SERUM 1.66 mg/dL (0.72-1.25); PHOSPHORUS 3.4 MG/DL (2.3-4.7); TOTAL PROTEIN 5.6 g/dL (6.5-8.1)
[2023-12-17 16:13] LABS: CREATININE,URINE RANDOM 185.31 mg/dL (63-166)
[2023-12-18] VITALS (11 sets, daily range): BP systolic 105–143; BP diastolic 63–101; PULSE 53–99; RESP 8–26; TEMP 97.7–98; O2SAT 92–100
[2023-12-18] MEDS: CARVEDILOL 12.5 MG TAB PO SCH (17:22)
[2023-12-19] VITALS (14 sets, daily range): BP systolic 113–149; BP diastolic 80–118; PULSE 60–96; RESP 14–26; TEMP 97.8–98.7; O2SAT 90–100
[2023-12-19 07:10] LABS: BASOPHILS % 0.2 % (0.0-1.0); EOSINOPHILS # (AUTO) 0.2 (0.0-0.4); HEMATOCRIT 38.4 % (38.2-49.6); LYMPHOCYTES # (AUTO) 0.7 (1.0-3.2); LYMPHOCYTES % 10.9 % (18.0-39.1); MEAN CORPUSCULAR HEMOGLOBIN 31.6 pg (28-32); MEAN CORPUSCULAR HGB CONC 31.3 g/dL (31-35); MEAN CORPUSCULAR VOLUME 101.1 fL (81-99); MONOCYTES # (AUTO) 0.7 (0.2-0.8); MONOCYTES % 10.3 % (4.4-11.3); NEUTROPHILS % 75.1 % (38.7-80.0); PLATELET COUNT 200 x10e3/uL (140-360); RED CELL DISTRIBUTION WIDTH 16.3 % (11.7-14.4); WHITE BLOOD COUNT 6.63 x10e3/uL (4.8-10.8)
[2023-12-19 07:36] LABS: ALBUMIN/GLOBULIN RATIO 1.1 (0.8-2.0); ANION GAP 14.3 mmol/L (8-16); BILIRUBIN,TOTAL 1.2 mg/dL (0.2-1.2); CALCIUM 8.6 mg/dL (8.4-10.2); CREATININE, SERUM 1.7 mg/dL (0.72-1.25); MAGNESIUM 2.1 MG/DL (1.3-2.1); POTASSIUM 4.3 mmol/L (3.5-5.1); TOTAL PROTEIN 5.7 g/dL (6.5-8.1)
[2023-12-19 07:39] LABS: INR 1.62
[2023-12-19] MEDS ORDERED: CEFAZOLIN SODIUM 2 GM in SODIUM CHLORIDE 0.9% 100 ML IV PRN (13:00)
[2023-12-19] MEDS: DOXYCYCLINE HYCLATE TABLET 100 MG TAB PO SCH (16:50)
[2023-12-20] VITALS (20 sets, daily range): BP systolic 125–148; BP diastolic 83–112; PULSE 46–82; RESP 10–22; TEMP 96.6–98; O2SAT 92–100
[2023-12-20 07:43] LABS: CALCIUM 8.9 mg/dL (8.4-10.2); CREATININE, SERUM 1.64 mg/dL (0.72-1.25)
[2023-12-20] MEDS ORDERED: FUROSEMIDE 40 MG TAB PO SCH (10:00)
[2023-12-20] MEDS ORDERED: LOSARTAN POTASSIUM 100 MG TAB PO SCH (10:00)
[2023-12-20] MEDS: FUROSEMIDE 40 MG TAB PO SCH (19:23)
[2023-12-20] MEDS: LOSARTAN POTASSIUM 100 MG TAB PO SCH (19:23)
[2023-12-20] MEDS: GENTAMICIN SULFATE 40 MG/ML 2 ML VIAL ONE (20:56)
[2023-12-20] MEDS: Vancomycin IV 1 GM VIAL ONE (20:57)
[2023-12-20] MEDS: SODIUM CHLORIDE 0.9% 250ML 0 ML ONE (20:57)
[2023-12-20] MEDS: IOPAMIDOL 610MG/1ML 300 MG/ML VIAL IV ONE (20:57)
[2023-12-20] MEDS: LIDOCAINE HCL 2% LOCAL 20 ML VIAL ONE (20:57)
[2023-12-20] MEDS: CEFAZOLIN SODIUM 2 GM ONE (20:57)
[2023-12-20] MEDS: SODIUM CHLORIDE 0.9% 100 ML ONE (20:57)
[2023-12-20] MEDS: FENTANYL CITRATE/PF 100MCG/2 ML INJ ONE (20:58)
[2023-12-20] MEDS: SODIUM BICARBONATE 8.4% SYRING 50 ML ONE (20:58)
[2023-12-20] MEDS: DIPHENHYDRAMINE HCL INJ 50 MG/ML VIAL ONE (20:58)
[2023-12-20] MEDS: MIDAZOLAM HCL 2 MG/2 ML VIAL ONE (20:58)
[2023-12-20] MEDS: SODIUM CHLORIDE 0.9% 500ML 500 ML ONE (20:59)
[2023-12-20] MEDS: SODIUM CHLORIDE 0.9% 1000ML 2,000 ML ONE (20:59)
[2023-12-20] MEDS: TRAMADOL HCL 50 MG TAB PO PRN (22:28)
[2023-12-21] VITALS (17 sets, daily range): BP systolic 96–138; BP diastolic 69–106; PULSE 74–160; RESP 9–28; TEMP 97.7; O2SAT 84–100
[2023-12-21 07:35] LABS: BASOPHILS % 0.1 % (0.0-1.0); EOSINOPHILS # (AUTO) 0.1 (0.0-0.4); EOSINOPHILS % 1.2 % (0.0-6.0); HEMATOCRIT 42.9 % (38.2-49.6); HEMOGLOBIN 13.5 g/dL (14.0-18.0); LYMPHOCYTES # (AUTO) 0.7 (1.0-3.2); LYMPHOCYTES % 9.8 % (18.0-39.1); MEAN CORPUSCULAR HEMOGLOBIN 31.8 pg (28-32); MEAN CORPUSCULAR HGB CONC 31.5 g/dL (31-35); MEAN CORPUSCULAR VOLUME 100.9 fL (81-99); MONOCYTES # (AUTO) 0.7 (0.2-0.8); NEUTROPHILS # (AUTO) 5.7 (2.1-6.9); NEUTROPHILS % 78.5 % (38.7-80.0); PLATELET COUNT 199 x10e3/uL (140-360); RED BLOOD COUNT 4.25 x10e6/uL (4.3-5.7); RED CELL DISTRIBUTION WIDTH 16.1 % (11.7-14.4); WHITE BLOOD COUNT 7.27 x10e3/uL (4.8-10.8)
[2023-12-21 08:29] LABS: ANION GAP 13.8 mmol/L (8-16); CALCIUM 8.9 mg/dL (8.4-10.2); CREATININE, SERUM 1.63 mg/dL (0.72-1.25); POTASSIUM 3.8 mmol/L (3.5-5.1)
[2023-12-22] MEDS ORDERED: AMIODARONE HCL 200 MG TAB PO SCH (09:00)
== END 2023-12-21 14:35 | disposition home or self-care (01) | DRG 276 ==
LOC: ER 17:14 → ERHOLD 19:01 → ICU 22:08
PROVIDERS: ADMIT Internal Medicine; ATTEND Internal Medicine
PROC: 0JH609Z Insertion of Cardiac Resynchronization Defibrillator Pulse Generator into Chest Subcutaneous Tissue and Fascia, Open Approach (ICD-10-PCS; principal; 2023-12-21)
PROC: 02HK3KZ Insertion of Defibrillator Lead into Right Ventricle, Percutaneous Approach (ICD-10-PCS; 2023-12-21)
PROC: 02HL3KZ Insertion of Defibrillator Lead into Left Ventricle, Percutaneous Approach (ICD-10-PCS; 2023-12-21)
PROC: 02H63KZ Insertion of Defibrillator Lead into Right Atrium, Percutaneous Approach (ICD-10-PCS; 2023-12-21)
PROC: 3E0102A Introduction of Anti-Infective Envelope into Subcutaneous Tissue, Open Approach (ICD-10-PCS; 2023-12-21)
PROC: B5171ZZ Fluoroscopy of Left Subclavian Vein using Low Osmolar Contrast (ICD-10-PCS; 2023-12-21)
DX: I13.0 Hypertensive heart and chronic kidney disease with heart failure and stage 1 through stage 4 chronic kidney disease, or unspecified chronic kidney disease (principal); I50.43 Acute on chronic combined systolic (congestive) and diastolic (congestive) heart failure; N17.9 Acute kidney failure, unspecified; N18.32 Chronic kidney disease, stage 3b; I42.8 Other cardiomyopathies; I48.91 Unspecified atrial fibrillation; I25.10 Atherosclerotic heart disease of native coronary artery without angina pectoris; G47.09 Other insomnia; T46.2X5A Adverse effect of other antidysrhythmic drugs, initial encounter; Y92.009 Unspecified place in unspecified non-institutional (private) residence as the place of occurrence of the external cause; R53.1 Weakness; N40.0 Benign prostatic hyperplasia without lower urinary tract symptoms; D63.8 Anemia in other chronic diseases classified elsewhere; I08.1 Rheumatic disorders of both mitral and tricuspid valves; Z91.198 Patient's noncompliance with other medical treatment and regimen for other reason; Z11.52 Encounter for screening for COVID-19; Z79.899 Other long term (current) drug therapy
CPT/HCPCS: 0223U; 33225; 33249; 36415; 71045; 75820; 76770; 80048; 80053; 80061; 82550; 82570; 83036; 83735; 83880; 84100; 84300; 84484; 85025; 85610; 85730; 87400; 87420; 93005; 93306; 94799; 99152; 99153; 99252; 99284; C1763; C1769; J0690; J1200; J1580; J1940; J2003; J2250; J7030; J7040; J7050

== ENCOUNTER 2024-01-29 08:58 | Observation (INO) | payer OTHER ==
[~2024-01-29] VITALS: Ht 182.9 cm; Wt 80.3 kg
[2024-01-29 08:58] VITALS: TEMP 97.7
[2024-01-29 09:24] LABS: BASOPHILS % 0.2 % (0.0-1.0); EOSINOPHILS # (AUTO) 0.1 (0.0-0.4); EOSINOPHILS % 1.1 % (0.0-6.0); HEMATOCRIT 34.9 % (38.2-49.6); HEMOGLOBIN 11.3 g/dL (14.0-18.0); LYMPHOCYTES % 16.4 % (18.0-39.1); MEAN CORPUSCULAR HEMOGLOBIN 31.9 pg (28-32); MEAN CORPUSCULAR HGB CONC 32.4 g/dL (31-35); MEAN CORPUSCULAR VOLUME 98.6 fL (81-99); MONOCYTES # (AUTO) 0.6 (0.2-0.8); MONOCYTES % 9.6 % (4.4-11.3); NEUTROPHILS # (AUTO) 4.5 (2.1-6.9); NEUTROPHILS % 72.2 % (38.7-80.0); PLATELET COUNT 235 x10e3/uL (140-360); RED BLOOD COUNT 3.54 x10e6/uL (4.3-5.7); RED CELL DISTRIBUTION WIDTH 15.7 % (11.7-14.4); WHITE BLOOD COUNT 6.23 x10e3/uL (4.8-10.8)
[2024-01-29 09:49] LABS: ALBUMIN 3.3 g/dL (3.5-5.0); ANION GAP 17.5 mmol/L (8-16); BILIRUBIN,TOTAL 1.4 mg/dL (0.2-1.2); CALCIUM 8.9 mg/dL (8.4-10.2); CREATININE, SERUM 2.22 mg/dL (0.72-1.25); POTASSIUM 3.5 mmol/L (3.5-5.1); TOTAL PROTEIN 6.6 g/dL (6.5-8.1)
[2024-01-29 10:07] LABS: TROPONIN I 0.123 ng/mL (0-0.300)
[2024-01-29] MEDS: DOXYCYCLINE HYCLATE TABLET 100 MG TAB PO SCH (11:03)
[2024-01-29] MEDS: FUROSEMIDE INJ 10 MG/ML 4 ML VIAL IV ONE (11:04)
[2024-01-29] MEDS: ASPIRIN 81 MG CHEW TAB PO ONE (11:04)
[2024-01-29] MEDS: CEFTRIAXONE 2 GM in SODIUM CHLORIDE 0.9% 100 ML IV SCH (11:31)
[2024-01-29 15:04] VITALS: PULSE 66; RESP 18; O2SAT 96
[2024-01-29 15:16] VITALS: PULSE 77; RESP 18
[2024-01-29 16:53] LABS: TROPONIN I 0.103 ng/mL (0-0.300)
[2024-01-29] MEDS: CARVEDILOL 12.5 MG TAB PO SCH (17:14)
[2024-01-29] MEDS: TAMSULOSIN HCL 0.4 MG CAP PO SCH (21:56)
[2024-01-29 22:00] VITALS: BP 133/90; PULSE 65; RESP 18; TEMP 98.7; O2SAT 96
[2024-01-30] VITALS (8 sets, daily range): BP systolic 119–133; BP diastolic 81–90; PULSE 65–69; RESP 16–22; TEMP 97.6–98.7; O2SAT 94–100
[2024-01-30 00:56] LABS: TROPONIN I 0.104 ng/mL (0-0.300)
[2024-01-30 05:52] LABS: BASOPHILS % 0.2 % (0.0-1.0); EOSINOPHILS # (AUTO) 0.1 (0.0-0.4); EOSINOPHILS % 1.4 % (0.0-6.0); HEMATOCRIT 29.8 % (38.2-49.6); LYMPHOCYTES # (AUTO) 0.7 (1.0-3.2); LYMPHOCYTES % 11.6 % (18.0-39.1); MEAN CORPUSCULAR HEMOGLOBIN 32.4 pg (28-32); MEAN CORPUSCULAR HGB CONC 33.6 g/dL (31-35); MEAN CORPUSCULAR VOLUME 96.4 fL (81-99); MONOCYTES # (AUTO) 0.5 (0.2-0.8); MONOCYTES % 8.1 % (4.4-11.3); NEUTROPHILS # (AUTO) 4.9 (2.1-6.9); NEUTROPHILS % 78.2 % (38.7-80.0); PLATELET COUNT 201 x10e3/uL (140-360); RED BLOOD COUNT 3.09 x10e6/uL (4.3-5.7); RED CELL DISTRIBUTION WIDTH 15.6 % (11.7-14.4); WHITE BLOOD COUNT 6.28 x10e3/uL (4.8-10.8)
[2024-01-30 06:17] LABS: ANION GAP 15.1 mmol/L (8-16); CALCIUM 8.3 mg/dL (8.4-10.2); CREATININE, SERUM 1.86 mg/dL (0.72-1.25)
[2024-01-30 06:18] LABS: POTASSIUM 3.1 mmol/L (3.5-5.1)
[2024-01-30] MEDS ORDERED: LOSARTAN POTASSIUM 100 MG TAB PO SCH (09:00)
[2024-01-30] MEDS: FUROSEMIDE INJ 10 MG/ML 4 ML VIAL IV SCH (10:11)
[2024-01-30] MEDS: POTASSIUM CHLORIDE 20 MEQ TAB CR PO ONE (10:14)
[2024-01-30] MEDS: HYDRALAZINE HCL 25 MG TAB PO SCH (14:59)
[2024-01-30] MEDS ORDERED: DOXYCYCLINE HY100 MG PO (16:30)
[2024-01-30] MEDS ORDERED: ELIQUIS5 MG PO (16:30)
[2024-01-30] MEDS ORDERED: LASIX40 MG PO (16:30)
[2024-01-30] MEDS ORDERED: HYDRALAZINE HCL25 MG PO (16:30)
[2024-01-30] MEDS ORDERED: COREG12.5 MG PO (16:30)
[2024-01-30] MEDS: APIXABAN 5 MG TABLET PO SCH (17:19)
== END 2024-01-30 18:03 | disposition home or self-care (01) ==
LOC: ER 09:15 → ERHOLD 11:42 → MED/SURG2 21:00
PROVIDERS: ADMIT Internal Medicine; ATTEND Internal Medicine
DX: I13.0 Hypertensive heart and chronic kidney disease with heart failure and stage 1 through stage 4 chronic kidney disease, or unspecified chronic kidney disease (principal); N18.32 Chronic kidney disease, stage 3b; I50.23 Acute on chronic systolic (congestive) heart failure; I48.0 Paroxysmal atrial fibrillation; Z95.810 Presence of automatic (implantable) cardiac defibrillator; E87.6 Hypokalemia; I25.10 Atherosclerotic heart disease of native coronary artery without angina pectoris; I42.9 Cardiomyopathy, unspecified; D64.9 Anemia, unspecified; R53.81 Other malaise; R53.83 Other fatigue; Z86.19 Personal history of other infectious and parasitic diseases; Z87.442 Personal history of urinary calculi; N40.0 Benign prostatic hyperplasia without lower urinary tract symptoms; Z79.02 Long term (current) use of antithrombotics/antiplatelets; Z79.899 Other long term (current) drug therapy; Z87.440 Personal history of urinary (tract) infections; Z82.49 Family history of ischemic heart disease and other diseases of the circulatory system
CPT/HCPCS: 36415; 71045; 80048; 80053; 82550; 83605; 83880; 84484; 85025; 87040; 93005; 94799; 99284; G0378; J0696; J1940; J7050